=== PATIENT | female | born 1965 | race Caucasian/White ===

== ENCOUNTER 2022-01-30 19:41 | Emergency (ER) | payer OTHER ==
[2022-01-30] MEDS ORDERED: lidocaine 1% 20 ML MDV SUBQ ONE (20:47)
[2022-01-30] MEDS ORDERED: TETANUS/DIPHTHERIA/PERTUSSIS 0.5 ML SYRINGE IM ONE (21:00)
--- NOTE | 2022-01-30 21:34 | ED Physician Documentation ---
PD HPI UPPER EXT INJURY - Stated complaint Stated Complaint: RT HAND LAC - Chief complaint Chief Complaint: Laceration - History obtained from History obtained from: Patient - Additonal information Additional information: Patient is a 57-year-old female with no significant past medical history presenting for evaluation of laceration to right index finger. Patient was walking a dog when 8 was pulling away from her and she scraped her arm against a fence and cut her finger. She is unsure of her last tetanus. She does not take a blood thinner. She denies injury elsewhere. Review of Systems Constitutional: denies: Fever Nose: denies: Congestion Throat: denies: Sore throat Cardiac: denies: Chest pain / pressure Respiratory: denies: Dyspnea GI: denies: Abdominal Pain Skin: reports: Laceration (s) Musculoskeletal: denies: Back pain Neurologic: denies: Head injury PD PAST MEDICAL HISTORY - Past Medical History Past Medical History: Yes Neuro: Other Other Past Medical History: concussion - Past Surgical History Past Surgical History: Yes - Allergies Allergies/Adverse Reactions: Allergies Allergy/AdvReac Type Severity Reaction Status Date / Time No Known Drug Allergies Allergy Verified 01/30/22 19:50 - Social History Does the pt smoke?: No Smoking Status: Never smoker Does the pt drink ETOH?: Yes Does the pt have substance abuse?: No - Immunizations Immunizations are current?: No PD ED PE NORMAL - General General: Alert and oriented X 3, No acute distress, Well developed/nourished - HEENT HEENT: Atraumatic, Moist mucous membranes - Respiratory Respiratory: No respiratory distress - Extremities Extremities: No tenderness to palpate, Normal ROM s pain, Other (Laceration to right index finger, Normal range of motion at all joints, brisk cap refill, sensation grossly intact distally to the injury, normal range of motion and no bony tenderness; Strong radial pulse) PD ED PE EXPANDED - Extremities TONY UE/Hands Visual: 1 - laceration 2 - laceration Results - Vitals Vitals: Vital Signs - 24 hr 01/30/22 01/30/22 19:50 21:39 Temperature 36.5 C 36.5 C Heart Rate 76 72 Respiratory 16 16 Rate Blood Pressure 114/67 115/62 O2 Saturation 98 99 Oxygen O2 Source Room air Procedures - Laceration (location) Right index finger Length in cm: 2 Wound type: Curved (Wraps around finger Near PIP), Clean Neurovascular status: Sensory intact, Motor intact, Vascular intact Tendon involvement: Tendon intact Anesthesia: Lidocaine 1% Wound preparation: Chlorhexadine, Irrigated copiously NS Skin layer closure: Nylon, Interrupted, Sutures - enter # (6) Other: Patient tolerated well, No complications, Neurovascular intact, Dressing applied, Tetanus booster given PD MEDICAL DECISION MAKING - ED course ED course: Patient with injury to right index finger. Neurovascularly intact with no signs of tendon injury. Wound was copiously irrigated and cleaned and sutured with 6 stitches. Patient advised on wound care as well as need for suture removal. She is advised on return precautions.No bony tenderness to suggest fracture or dislocation. Departure - Departure Disposition: 01 Home, Self Care Clinical Impression: Laceration of right index finger w/o foreign body w/o damage to nail Qualifiers: Encounter type: initial encounter Qualified Code(s): S61.210A - Laceration without foreign body of right index finger without damage to nail, initial encounter Condition: Stable Instructions: ED Laceration Hand Comments: You were evaluated for an injury to your right hand. A laceration to your right index finger was closed with 6 stitches. We also applied a finger splint and dressing to help you keep the finger straight as it does cross over the joint line. Please keep this on for the next 24 hours to give the wound a good chance to start to heal. The stitches should be removed in 1 week. Please keep the wound clean and dry. If you notice any abnormal drainage, redness, increased swelling or have any concerns please return to the emergency department. Discharge Date/Time: 01/30/22 21:40
[2022-01-30 21:39] VITALS: BP 115/62
== END 2022-01-30 21:40 | disposition home or self-care (01) ==
LOC: ED 19:41
DX: S61.210A Laceration without foreign body of right index finger without damage to nail, initial encounter (principal); W26.8XXA Contact with other sharp object(s), not elsewhere classified, initial encounter; Y93.K1 Activity, walking an animal; Z23 Encounter for immunization; Z71.85 Encounter for immunization safety counseling
CPT/HCPCS: 12001; 90471; 99283